=== PATIENT | female | born 2000 | race Caucasian/White ===

== ENCOUNTER → 2020-11-25 | Outpatient (CLI) | payer BC, OTHER | LOC: RAD 15:09 | DX: S83.91XA Sprain of unspecified site of right knee, initial encounter (principal); X58.XXXA Exposure to other specified factors, initial encounter | CPT/HCPCS: 73560 ==

== ENCOUNTER 2021-02-13 22:17 | Emergency (ER) | payer OTHER ==
[~2021-02-13] VITALS: Ht 170.2 cm; Wt 68.0 kg
[2021-02-14 03:16] LABS: HEMOGLOBIN 11.8 gm/dl (12.3-15.3); RED BLOOD COUNT 4.1 M/UL (4.00-5.10); WHITE BLOOD COUNT 13.4 K/UL (4.5-11.0)
[2021-02-14 03:35] LABS: BUN/CREATININE RATIO 11 (0-10)
== END 2021-02-14 09:20 | disposition other institution (70) ==
LOC: ER1 22:17
PROVIDERS: Physician Assistant Medical
DX: R10.12 Left upper quadrant pain (principal); R10.11 Right upper quadrant pain; R11.2 Nausea with vomiting, unspecified
CPT/HCPCS: 80053; 81001; 82150; 83690; 84703; 85025; 85652; 86140; 96365; 96366; 96367; 96375; 99285; Q9967

== ENCOUNTER 2021-07-07 11:55 | Emergency (ER) | payer OTHER ==
[2021-07-07 12:53] LABS: HEMOGLOBIN 13.9 gm/dl (12.3-15.3); RED BLOOD COUNT 4.74 M/UL (4.00-5.10); WHITE BLOOD COUNT 11.4 K/UL (4.5-11.0)
[2021-07-07 13:10] LABS: BUN/CREATININE RATIO 8 (0-10)
[2021-07-07] MEDS ORDERED: FLAGYL500 MG PO (20:26)
[2021-07-07] MEDS ORDERED: ZOFRAN4 MG PO (20:26)
== END 2021-07-07 20:48 | disposition home or self-care (01) ==
LOC: ER1 11:55
PROVIDERS: Physician Assistant
DX: R10.31 Right lower quadrant pain (principal); R11.0 Nausea; Z87.19 Personal history of other diseases of the digestive system
CPT/HCPCS: 80053; 81001; 83690; 84703; 85025; 99284; Q9967

== ENCOUNTER 2021-12-30 10:21 | Emergency (ER) | payer BC ==
[~2021-12-30 10:21] MED LIST: FLAGYL500 MG PO; ZOFRAN4 MG PO
[2021-12-30 12:29] LABS: RED BLOOD COUNT 4.09 M/UL (4.00-5.10); WHITE BLOOD COUNT 8.5 K/UL (4.5-11.0)
[2021-12-30 12:39] LABS: BUN/CREATININE RATIO 13 (0-10)
[2021-12-30] MEDS ORDERED: METRONIDAZOLE500 MG PO (16:19)
== END 2021-12-30 16:24 | disposition home or self-care (01) ==
LOC: ER1 10:21
PROVIDERS: Physician Assistant
DX: R10.9 Unspecified abdominal pain (principal); Z87.19 Personal history of other diseases of the digestive system
CPT/HCPCS: 80053; 81001; 84703; 85025; 99284; Q9967